=== PATIENT | male | born 1995 | race Caucasian/White ===

== ENCOUNTER 2019-03-21 10:49 | Emergency (ER) | payer MEDICAID ==
[~2019-03-21] VITALS: Ht 175.3 cm; Wt 68.2 kg
[2019-03-21] MEDS ORDERED: EPCL1TAB PO (11:36)
[2019-03-21] MEDS ORDERED: NAPR250T4 PO (11:36)
[2019-03-21] MEDS ORDERED: ANTA1CHW6 PO (11:36)
[2019-03-21] MEDS ORDERED: ACET-683 PO (11:36)
[2019-03-21] MEDS ORDERED: [UNRECOGNIZED DRUG - CODE] XX (11:36)
[2019-03-21 11:45] LABS: HEMATOCRIT 45.3 % (42.0-52.0); HEMOGLOBIN 16.3 g/dl (13.5-17.5); MEAN CORPUSCULAR HEMOGLOBIN 32.4 pg (27.0-33.0); MEAN CORPUSCULAR VOLUME 90.1 fl (80.0-96.0); PLATELET COUNT, AUTOMATED 196 10^3/uL (150-450); RED BLOOD COUNT 5.03 10^6/uL (4.30-6.10); WHITE BLOOD COUNT 8.1 10^3/uL (4.0-10.0)
[2019-03-21 12:13] LABS: ACETAMINOPHEN LEVEL < 2.0 UG/ML (10.0-30.0); ALT/SGPT 110 U/L (12-78); BILIRUBIN,DIRECT 0.7 MG/DL (0.0-0.2); BILIRUBIN,TOTAL 2.5 MG/DL (0.2-1.0); BLOOD UREA NITROGEN 16 MG/DL (7-18); CALCIUM LEVEL 9.3 MG/DL (8.5-10.1); CARBON DIOXIDE LEVEL 27 MEQ/L (21-32); CHLORIDE LEVEL 96 MEQ/L (98-107); CREATININE FOR GFR 0.91 MG/DL (0.70-1.30); ETHYL ALCOHOL (ETHANOL) < 0.003 % (0.000-0.010); GLOMERULAR FILTRATION RATE > 60.0 (>60); GLUCOSE, FASTING 84 MG/DL (70-100); POTASSIUM SERUM 3.8 MEQ/L (3.5-5.1); SALICYLATE LEVEL < 1.7 MG/DL (5.0-30.0); SODIUM LEVEL 134 MEQ/L (136-145); THYROID STIMULATING HORMONE 0.713 uIU/ML (0.358-3.740); TOTAL PROTEIN 7.3 GM/DL (6.4-8.2)
[2019-03-21 13:26] LABS: AMPHETAMINES LEVEL URINE POSITIVE (NEGATIVE); BARBITURATES URINE NEGATIVE (NEGATIVE); BENZODIAZEPINES URINE NEGATIVE (NEGATIVE); CANNABINOIDS URINE NEGATIVE (NEGATIVE); COCAINE METABOLITE URINE NEGATIVE (NEGATIVE); METHADONE URINE NEGATIVE (NEGATIVE); OPIATES URINE NEGATIVE (NEGATIVE); PHENCYCLIDINE URINE NEGATIVE (NEGATIVE)
[2019-03-21] MEDS ORDERED: TUMS500C PO (14:15)
[2019-03-21] MEDS ORDERED: IBUP-1730 PO (14:15)
[2019-03-21] MEDS ORDERED: REFR0.5D8 OU (14:15)
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
[2019-03-21 17:08] VITALS: BP 152/92
--- NOTE | 2019-03-21 19:36 | ECGEPIP ---
[facility] - ED Test Date: 2019-03-21 Pat Name: ANDRÉS WEINSTEIN Department: Room: - Gender: Male Cigarette Inspector: [facility] : 1995 Requested By: Taisha Vega Order Number: [id number] Reading MD: Ken Wiggins Measurements Intervals Index Rate: 121 P: 81 IA: 161 QRS: 93 QRSD: 86 T: 47 QT: 317 QTc: 450 Interpretive Statements SINUS TACHYCARDIA BORDERLINE RIGHT AXIS DEVIATION NSTTW ABNORMALITIES NO PRIORS FOR COMPARISON Electronically Signed on 03-21-2019 19:36:33 EST by Ken Wiggins
== END 2019-03-21 17:31 | disposition home or self-care (01) ==
LOC: M ED 10:49
DX: R45.851 Suicidal ideations (principal); R45.850 Homicidal ideations; B19.20 Unspecified viral hepatitis C without hepatic coma; Z79.899 Other long term (current) drug therapy
CPT/HCPCS: 36415; 80048; 80076; 80307; 84443; 85027; 93005; 99284; G0480